=== PATIENT | female | born 1990 | race Caucasian/White ===

== ENCOUNTER 2024-03-14 15:30 | Emergency (ER) | payer SELFPAY ==
[2024-03-14 15:38] VITALS: BP 136/83
[2024-03-14 16:07] LABS: % Basophils 0.4 % (0-2); % Immature Granulocytes 0.4 % (0-0.5); % Monocytes 4.1 % (1.7-9.3); % Neutrophils 89.1 % (42.2-75.2); Absolute Basophils 0.1 10^3/uL (0-0.2); Absolute Immature Granulocytes 0.1 10^3/uL (0-0.05); Absolute Lymphocytes 1.3 10^3/uL (1.2-3.4); Absolute Monocytes 0.9 10^3/uL (0.1-0.6); Absolute Neutrophils 19.2 10^3/uL (1.4-6.5); Hematocrit 34.7 % (37.0-47.0); Hemoglobin 12.2 g/dL (12.0-16.0); Mean Corp Hgb Conc. 35.2 g/dL (33.0-37.0); Mean Corpuscular Hgb 29.8 pg (27.0-31.0); Mean Corpuscular Volume 84.8 fL (81.0-99.0); Mean Platelet Volume 9.7 fL (7.4-10.4); Nucleated Red Blood Cells % 0 %; Platelet Count 303 10^3/uL (130-400); Red Blood Cell Count 4.09 10^6/uL (4.20-5.40); Red Cell Dist. Width 12.9 % (11.5-14.5); White Blood Cell Count 21.6 10^3/uL (4.8-10.8)
[2024-03-14 16:19] LABS: HCG, Serum Qualitative Screen Negative
[2024-03-14 16:25] LABS: ALT (SGPT) 17 U/L (0-35); AST (SGOT) 23 U/L (14-36); Albumin 4.8 g/dl (3.5-5.0); Alkaline Phosphatase 70 U/L (38-126); Blood Urea Nitrogen 12 mg/dl (7-17); Calcium 9.9 mg/dl (8.4-10.2); Carbon Dioxide 22 mmol/L (22-30); Chloride 108 mmol/L (98-107); Glucose 112 mg/dl (70-99); Potassium 4.5 mmol/L (3.5-5.1); Sodium 140 mmol/L (135-145); Total Bilirubin 0.3 mg/dl (0.2-1.3); Total Protein 7.4 g/dl (6.3-8.2); eGFR > 60.00
[2024-03-14] MEDS: TYLENOL 650 MG PO (16:28)
[2024-03-14] MEDS: NSS 1000 IV (16:29)
[2024-03-14] MEDS: PHENERGAN 51 MG IV (16:29)
[2024-03-14] MEDS: SUBUTEX 4 MG SL (16:38)
--- NOTE | 2024-03-14 16:50 | ED.GENMED ---
History of Present Illness
General
Chief Complaint: Overdose Unintentional
Source: patient
Exam Limitations: none
Time Seen by Provider: 03/14/24 15:44
Nursing documentation reviewed up to this point in time: agreed with
History of Present Illness
History of Present Illness:
33-year-old [place] Narcan she admits to snorting fentanyl previously been in rehab is unsure if she like to go back she is agitated here nauseous,
Phy Exam
Physical Exam
Physical Exam:
Physical Exam
General: Agitated female
Neck: No tongue bite
Heart: Regular
Lungs: no acute respiratory distress.
Neuro: alert and oriented. no focal neurological deficits
Skin: Warm and dry
Psychiatric: Cooperative agitated
Extremities: no edema.
Course
Orders/Labs/Results
Orders:
Orders
03/14/24 15:57
Test Result ONCE
03/14/24 15:58
Complete Blood Count/With Diff Urgent
Comprehensive Metabolic Panel Urgent
HCG, Serum Qualitative Screen Urgent
03/14/24 16:01
0.9% Sodium Chloride 1000 ml [Nss] 1,000 ml IV BOLUS
03/14/24 16:10
Promethazine [Phenergan] 25 mg 0.9% Sodium Chloride 50 ml [Nss] 50 ml IV NOW
03/14/24 16:17
Acetaminophen [Tylenol] 650 mg .ROUTE .STK-MED ONE
03/14/24 16:27
Acetaminophen [Tylenol] 650 mg PO NOW STA
03/14/24 16:34
Warm Handoff Consult ONCE
Patient agreeable to Warm Hand off: Yes
Call made to [phone]: Spoke with CRS
Buprenorphine [Subutex] 4 mg SL NOW STA
03/14/24 16:53
Lorazepam [Ativan] 2 mg IV NOW STA
Abnormal Lab Results
03/14/24
15:58
WBC 21.6 H 10^3/uL
(4.8-10.8)
RBC 4.09 L 10^6/uL
(4.20-5.40)
Hct 34.7 L %
(37.0-47.0)
Abs Immat Gran (auto) 0.1 H 10^3/uL
(0-0.05)
Absolute Neuts (auto) 19.2 H 10^3/uL
(1.4-6.5)
Absolute Monos (auto) 0.9 H 10^3/uL
(0.1-0.6)
Neutrophils % 89.1 H %
(42.2-75.2)
Lymphocytes % 6.0 L %
(20.5-51.1)
Chloride 108 H mmol/L
(98-107)
Glucose 112 H mg/dl
(70-99)
03/14/24 15:58
03/14/24 15:58
Vital Signs
Initial and Last Documented VS:
Initial Vital Signs
Temp Pulse Resp BP Pulse Ox
97.4 F 50 18 136/83 99
03/14/24 15:38 03/14/24 15:38 03/14/24 15:38 03/14/24 15:38 03/14/24 15:38
Last Documented Vital Signs
Temp Pulse Resp BP Pulse Ox
97.6 F 60 18 122/74 100
03/14/24 19:53 03/14/24 20:58 03/14/24 20:58 03/14/24 20:58 03/14/24 20:58
MDM/Problems Addressed
Differential Diagnosis Includes:
Narcotic withdrawal, with response to Narcan other substances with response to Narcan less likely
Acute Exacerbation and/or Progression of Chronic Illness:
Narcotic use
*Critical Care Note
Total Time (30-74mins, 75-104mins- exclusive of procedures): Not Applicable
Update Note
Update Note:
Update labs noted white count up could be reactive, patient calm now after fluids and some Ativan to receive Suboxone as well, be CARES to see the patient, will confirm what her plan of care is
ED Attending Note
-
Portions of this chart may have been created with voice recognition software.� Occasional wrong word or��sound alike� substitutions may have occurred due to the inherent limitations of voice recognition software.
Discharge Plan
Departure
Patient Disposition: Home (Routine Discharge)
Date of Disposition: 03/14/24
Time of Disposition: 20:25
Patient with high blood pressure during this ER visit?: No
Condition: Fair
Discharge Problem:
Acute opioid intoxication
Instructions: How to Give Naloxone
Prescriptions:
New
naloxone [Narcan] 4 mg/actuation spray,non-aerosol
4 mg intranasal DIRECTED Qty: 2 0RF
naloxone [Narcan] 4 mg/actuation spray,non-aerosol
4 mg intranasal DIRECTED Qty: 2 0RF
Interventions
Interventions:
*Risk Screen - Suicide Last Done: 03/14/24 15:38
*General Assessment Last Done: 03/14/24 15:38
*Neglect/Abuse Screening Last Done: 03/14/24 15:38
*Nursing Disposition Last Done: 03/14/24 20:58
ED- Cardiac Assessment Last Done: 03/14/24 15:46
ED- Neurological Assessment Last Done: 03/14/24 15:46
ED-Psychological Assessment Last Done: 03/14/24 15:46
ED- Pulmonary Assessment Last Done: 03/14/24 15:46
Discharge Date and Time
Discharge Date/Time: 03/14/24 20:59
Print Language: CHILEAN
[2024-03-14] MEDS: ATIVAN 2 MG IV (17:09)
[2024-03-14 18:55] VITALS: BP 138/68
[2024-03-14 19:53] VITALS: BP 129/87
[2024-03-14 20:58] VITALS: BP 122/74
== END 2024-03-14 20:59 | disposition home or self-care (01) ==
LOC: EMR 15:30
PROVIDERS: EMERGENCY PHYSICIAN Emergency Medicine
DX: F11.129 Opioid abuse with intoxication, unspecified (principal); R45.1 Restlessness and agitation; R11.0 Nausea
CPT/HCPCS: 99284; 96374; 96375; 96361; 80053; 84703; 85025